=== PATIENT | female | born 1940 | race Caucasian/White ===

== ENCOUNTER → 2017-05-18 | Outpatient (REF) | payer MEDICARE ==
[2017-05-18 21:16] LABS: RBC BODY FLUID < 2 10^3/uL (<2); WBC BODY FLUID 160 /uL (0-10)
[2017-05-18 21:24] LABS: BF DIFF IF INDICATED? YES (NO); SYNOVIAL FLUID COLOR PALE YELLOW (YELLOW)
[2017-05-18 22:21] LABS: CRYSTALS, BODY FLUID NONE SEEN (NONE SEEN)
== END ==
LOC: M LAB REF 17:26
PROVIDERS: ATTEND Internal Medicine Rheumatology
DX: M17.10 Unilateral primary osteoarthritis, unspecified knee (principal)